=== PATIENT | male | born 1965 | race Caucasian/White ===

== ENCOUNTER 2018-07-10 07:08 | Day surgery (SDC) | payer BC ==
--- NOTE | 2018-07-10 06:20 | History and Physical - [place] ---
CHIEF COMPLAINT/HISTORY OF CHIEF COMPLAINT: This patient presents with a history of intractable lumbar radiculopathy. Due to the failure of all therapy a spinal cord stimulator trial was conducted on 06/17/18 with 75-85% pain control. Due to the failure of all therapies and the success of the trial, the patient presents today for implantation of a permanent system. PAST MEDICAL HISTORY: Noncontributory. PAST SURGICAL HISTORY: Bilateral knee surgery and shoulder surgery. MEDICATIONS ON ADMISSION: List to be provided. ALLERGIES: None. FAMILY/PSYCHOSOCIAL HISTORY: Social history - Caffeine. Family history - Noncontributory. SYSTEMS REVIEW: The patient is appropriate in no acute distress. The remainder of the systems review is positive for degenerative arthritis. PHYSICAL EXAMINATION: Height is 6', weight is 180. No vitals. HEENT: Within normal limits. LUNGS: Clear. HEART: Rapid and regular. ABDOMEN: Nontender. MUSCULOSKELETAL: Examination of the musculoskeletal system shows pain and tenderness lumbar spine extending into both legs. The patient is L5-S1. There are currently no motor or sensory abnormalities. His ambulation is intact. NEUROLOGIC: Cranial nerves are intact. IMPRESSION: LUMBAR RADICULOPATHY, ICD-10 CODE M54.16 AND M54.17. PLAN: Due to the failure of all therapy, the patient is here for a spinal cord stimulator trial to determine if the implantation system can be of any value in pain control. The procedure will be considered outpatient and an overnight stay will be evaluated. JOB NUMBER: [id number] MTDD
[~2018-07-10 07:08] MED LIST: ACETAMINOPHEN 1,000 MG/100 ML BTL IV ONE; CEFAZOLIN 2 Gram 2 GM/50 ML BAG IVPB ONE; FAMOTIDINE 20MG TABLET PO ONE; MECLIZINE 25 MG TABLET PO ONE; METOCLOPRAMIDE 10 MG TABLET PO ONE
[2018-07-10] MEDS ORDERED: MIDAZOLAM HCL 2MG/2ML VIAL IV ONE (07:09)
[2018-07-10] MEDS ORDERED: LIDOCAINE 1% W/EPI 1:200,000 MPF 30ML SQ ONE (07:09)
[2018-07-10] MEDS ORDERED: BUPIVACAINE 0.5% W/EPI MPF 30 ML VIAL IVP ONE (07:09)
[2018-07-10] MEDS ORDERED: FENTANYL PF 100MCG/2ML VIAL IV ONE (07:09)
[2018-07-10] MEDS ORDERED: PROPOFOL 10 MG/ML VIAL IV ONE (07:09)
[2018-07-10] MEDS ORDERED: KETAMINE HCL 100MG/1ML VIAL INJ ONE (07:09)
--- NOTE | 2018-07-12 14:31 | Operative Note ---
DATE: 07/10/2018. PRIMARY CARE PHYSICIAN: Velma Rivero D.O. PREOPERATIVE DIAGNOSIS: LUMBAR RADICULOPATHY, ICD-10 CODE M54.16 AND M54.17. PREOPERATIVE DIAGNOSIS: LUMBAR RADICULOPATHY, ICD-10 CODE M54.16 AND M54.17. ANESTHESIA: Local sedation. ANESTHESIA PROVIDER: AKIN. PROCEDURES: 1. Fluoroscopically guided epidural access at left T11-12. Placement of spinal cord stimulator lead 1, a [employer] Infineon 16 with 16 electrodes, positioned left T7. 2. Fluoroscopically guided epidural access at left T12-L1. Placement of spinal cord stimulator lead 2, a [employer] Infineon 16 with 16 electrodes, positioned right T7. 3. Complex programming of lead 1 over 20 minutes followed by complex programming of lead 2 over 20 minutes. 4. Incision, subcutaneous dissection, and anchoring of leads 1 and 2 to the supraspinous fascia with a [employer] locking anchor and nonabsorbable suture. 5. Incision, subcutaneous dissection, and creation of subcutaneous pouch at the right flank, the site picked by the patient, for placement of generator identified as a [email or web address] WaveWriter programmable, rechargeable generator. 6. Tunnelling between lead pouches into generator pouch, interfacing each lead to the generator. 7. Antibiotic irrigation and Bovie for hemostasis. 8. Placement of generator into pouch. Placement of leads into the pouch. 9. Closure of both incisions using Stratafix suture; #2-0 for the fascia and #3 -0 for the skin. Dermabond closure. 10. Complex recovery room programming of the internal generator for home use, two stimulators, for 20 minutes. SURGEON: Jayant Oneal D.O. INDICATIONS: This patient presents with a history of intractable lumbar radiculopathy. Due to the failure of all therapies and the success of a stimulator trial, the patient presents today for implantation of a permanent system. DESCRIPTION OF PROCEDURE: Intravenous lines, vital sign monitoring, and intravenous sedation. Prepped and draped with sterile technique with the patient prone. Under imaging from the left the epidural interspaces at T11-12 and 12-1 were marked and infiltrated. Using two separate curved- access Epimed needles with loss of resistance the space was accessed. On the left spinal cord stimulator lead 1, a [employer] Infineon 16 with 16 electrodes, was advanced with the needle positioned left of midline at T7. With the access at 12-1, spinal cord stimulator lead 2, a [employer] Infineon 16 with 16 electrodes was positioned right of T7. The access was accomplished atraumatically with no blood and no cerebrospinal fluid. Complex programming of lead 1 over 20 minutes was followed by complex programming of lead 2 over 20 minutes with the patient fully awake and alert and appropriate. When patterns of stimulation were achieved, the patient indicated we had all of the areas of his pain. He was then given the options to implant, continue to program, or remove. He opted to implant. The questions were repeated with the same response. He was then resedated by Anesthesia. The skin above and below the needles was infiltrated with local. An incision was made, and subcutaneous dissection was conducted to the supraspinous fascia. A [email or web address] locking anchor was then used to secure each of the leads down to the deep fascia with nonabsorbable suture once the needle was removed. At the right flank, a site picked by the patient for the generator, a [email or web address] programmable, rechargeable WaveWriter generator, the skin was infiltrated. An incision was made and subcutaneous dissection was conducted to the deep fascia. A tunneling tool was then used to carry the leads into the pouch, and then each lead was interfaced to the generator. Antibiotic irrigation and Bovie for hemostasis. The generator and its connections were placed into the pouch and the leads were placed into their own pouch. Each incision was then closed using Stratafix suture; #2-0 for the fascia and #3-0 for the skin. Dermabond closure was then used to approximate the edges of both wounds. He was then transported to the recovery room stable with no side effects from the procedure or the sedation. When fully awake and alert, complex programming of the generator was performed in the recovery room over 20 minutes, re-establishing stimulation of pain control to the areas. He was requesting discharge home. He was given the appropriate instructions and was prepared for discharge. DISCHARGE INSTRUCTIONS: 1. The sites are to remain clean and dry. Dermabond will allow showering, but he should not sit in water. Should the edges curl, he may trim but should not remove the dressing. If this happens he should contact the clinic. 2. He is to keep his activities low and limit bend, lift, push, and pull until we see him in the office in seven to ten days. 3. The office is to contact the patient to set a return appointment up. 4. All other instructions were provided including numbers to contact with problems. We will see him back in seven to ten days. JOB NUMBER: [id number] cc: Andreas Rainey
--- NOTE | 2018-07-13 21:43 | RADIOLOGY REPORT ---
EXAM: SPINE, 1 VIEW HISTORY: SPINAL CANAL STIMULATOR IMPLANT. TECHNIQUE: A single AP supine view of the thoracic spine is obtained portably. COMPARISON: None. FINDINGS: Two intraspinal stimulator leads are noted in place with their tips projecting at the superior aspect of the T7 vertebral body. Their entrance into the spinal canal is indeterminate, likely not included on the image. There are degenerative changes scattered throughout the visualized spine. There is levoconvex curvature of the upper thoracic spine, mild in degree. Fracture deformities of the posterolateral right sixth and seventh ribs. IMPRESSION: TWO INTRASPINAL STIMULATOR LEADS IN PLACE WITH THEIR TIPS PROJECTING AT THE LEVEL OF THE SUPERIOR ASPECT OF THE T7 VERTEBRAL BODY. JOB NUMBER: [id number] MTDD
== END 2018-07-10 10:38 | disposition home or self-care (01) ==
LOC: SUR 07:08
PROVIDERS: ATTEND Pain Medicine Interventional Pain Medicine
DX: M54.16 Radiculopathy, lumbar region (principal); M54.17 Radiculopathy, lumbosacral region; Z87.891 Personal history of nicotine dependence
CPT/HCPCS: 63650; 63685; 01936; 95972; 72020; J3010; J0690; J3490; C1820